=== PATIENT | female | born 1995 | race Caucasian/White ===

== ENCOUNTER 2018-05-03 02:56 | Emergency (ER) | payer BC ==
--- NOTE | 2018-05-03 03:15 | EDPHY ---
H & P Stated Complaint: CP since AM, worse tonight Time Seen by Provider: 05/03/18 03:15 HPI/ROS: HPI CHIEF COMPLAINT: Left-sided musculoskeletal chest pain. HISTORY OF PRESENT ILLNESS: 22-year-old female, presents emergency room with 1 day of left-sided chest discomfort. She states it hurts when she takes deep breath in, it hurts when she coughs. If she is not laughing, not coughing, not take a deep breath she denies pain. She denies shortness of breath, denies hemoptysis. Does not smoke. Mainly complains of left anterior chest wall pain and left posterior scapula pain worse when she takes deep breath in. No history of DVT or PE. Saw her OBGYN yesterday and just started on control yesterday. Past Medical History: Denies medical history Past Surgical History: Denies surgical history Social History: Denies drugs alcohol tobacco. Family History: Noncontributory ROS REVIEW OF SYSTEMS: 10 Systems were reviewed and negative with the exception of the elements mentioned in the history of present illness. Exam Constitutional appears well nontoxic no acute distress, vital signs stable triage nursing summary reviewed, vital signs reviewed, awake/alert. Eyes normal conjunctivae and sclera, EOMI, PERRLA. HENT normal inspection, atraumatic, moist mucus membranes, no epistaxis, neck supple/ no meningismus, no raccoon eyes. Respiratory clear to auscultation bilaterally, normal breath sounds, no respiratory distress, no wheezing. Cardiovascular chest wall: Mild tender palpation over the left anterior chest wall and left scapula reproducible on exam, rate normal, regular rhythm, no murmur, no edema, distal pulses normal. Gastrointestinal soft, non-tender, no rebound, no guarding, normal bowel sounds, no distension, no pulsatile mass. Genitourinary no CVA tenderness. Musculoskeletal no midline vertebral tenderness, full range of motion, no calf swelling, no tenderness of extremities, no meningismus, good pulses, neurovascularly intact. Skin pink, warm, & dry, no rash, skin atraumatic. Neurologic awake, alert and oriented x 3, AAOx3, moves all 4 extremities equally, motor intact, sensory intact, CN II-XII intact, normal cerebellar, normal vision, normal speech. Psychiatric normal mood/affect. Heme/Lymph/Immune no lymphadenopathy. Differential diagnosis includes but is not limited to: ACS, atypical chest pain , pneumothorax, pneumonia, pulmonary embolism, aortic dissection, congestive heart failure, tumor, musculoskeletal pain, esophageal pain, GERD, peptic ulcer disease, pancreatitis Medical Decision Making: Plan for this patient I believe this to be anterior chest wall musculoskeletal pain, IV Toradol for pain control IV fluids, EKG, troponin, D-dimer rule out PE rule out pneumothorax. Re-evaluation: EKG interpretation by me on record in [facility] system. Impression time of EKG 3:15 a.m., sinus tach 101 without any signs of acute ischemia. No ST elevation no ST depression no T-wave abnormalities. No signs of cardiac arrhythmia, no signs of WPW or Brugada. Patient has a positive D-dimer. She is on control. Given her pleuritic pain when she breathes in will proceed with CT angiogram of the chest given control, positive D-dimer, and pleuritic pain. Patient had a CT angiogram of her chest due to the elevated D-dimer and pleuritic pain. The CT angiogram of the chest is negative for acute PE called to me by Dr. Victor The patient's EKG is nonischemic. The patient's troponin is noted to be negative. The patient's left-sided pleuritic pain, and tender palpation on the anterior left chest is consistent with musculoskeletal chest pain. She is re-evaluated at 7:14 a.m: She is sleeping. She denies any chest pain or shortness of breath. The patient ambulated well throughout the emergency without difficulty. Is noted her CT angiogram showed no evidence of PE in the setting but positive D -dimer The patient's EKG shows no signs of cardiac arrhythmia or ischemia. The patient would like to go home. Troponin negative Return precautions discussed with the patient understands return if worsening chest pain, shortness of breath or not doing well. Source: Patient - Personal History LMP (Females 10-55): Now Current Tetanus/Diphtheria Vaccine: Unsure - Medical/Surgical History Hx Asthma: No Hx Chronic Respiratory Disease: No Hx Diabetes: No Hx Cardiac Disease: No Hx Renal Disease: No Hx Cirrhosis: No Hx Alcoholism: No Hx HIV/AIDS: No Hx Splenectomy or Spleen Trauma: No Other PMH: denies - Social History Smoking Status: Former smoker Constitutional: Initial Vital Signs Temperature (C) 36.4 C 05/03/18 02:57 Heart Rate 102 H 05/03/18 02:57 Respiratory Rate 18 05/03/18 02:57 Blood Pressure 128/75 H 05/03/18 02:57 O2 Sat (%) 99 05/03/18 02:57 O2 Delivery Mode Room Air Allergies/Adverse Reactions: No Known Allergies Allergy (Unverified 05/03/18 02:59) Home Medications: Medication Instructions Recorded Bcp 05/03/18 Medical Decision Making - Diagnostics Imaging Results: Imaging Impressions Chest X-Ray 05/03/18 03:19 Impression: Normal portable exam. - Data Points Laboratory Results: Laboratory Results 05/03/18 03:25 05/03/18 03:25 05/03/18 05/03/18 05/03/18 03:25 03:25 03:25 WBC 12.98 10^3/uL H 10^3/uL (3.80-9.50) RBC 4.02 10^6/uL L 10^6/uL (4.18-5.33) Hgb 12.7 g/dL g/dL (12.6-16.3) Hct 36.0 % L % (38.0-47.0) MCV 89.6 fL fL (81.5-99.8) MCH 31.6 pg pg (27.9-34.1) MCHC 35.3 g/dL g/dL (32.4-36.7) RDW 12.0 % % (11.5-15.2) Plt Count 257 10^3/uL 10^3/uL (150-400) MPV 9.2 fL fL (8.7-11.7) Neut % (Auto) 71.9 % % (39.3-74.2) Lymph % (Auto) 18.3 % % (15.0-45.0) [place] % (Auto) 8.2 % % (4.5-13.0) Eos % (Auto) 1.0 % % (0.6-7.6) Baso % (Auto) 0.3 % % (0.3-1.7) Nucleat RBC Rel Count 0.0 % % (0.0-0.2) Absolute Neuts (auto) 9.33 10^3/uL H 10^3/uL (1.70-6.50) Absolute Lymphs (auto) 2.38 10^3/uL 10^3/uL (1.00-3.00) Absolute Monos (auto) 1.06 10^3/uL H 10^3/uL (0.30-0.80) Absolute Eos (auto) 0.13 10^3/uL 10^3/uL (0.03-0.40) Absolute Basos (auto) 0.04 10^3/uL 10^3/uL (0.02-0.10) Absolute Nucleated RBC 0.00 10^3/uL 10^3/uL (0-0.01) Immature Gran % 0.3 % % (0.0-1.1) Immature Gran # 0.04 10^3/uL 10^3/uL (0.00-0.10) D-Dimer 0.51 ug/mLFEU H ug/mLFEU (0.00-0.50) Sodium 140 mEq/L mEq/L (135-145) Potassium 3.7 mEq/L mEq/L (3.5-5.2) Chloride 105 mEq/L mEq/L (97-110) Carbon Dioxide 25 mEq/l mEq/l (22-31) Anion Gap 10 mEq/L mEq/L (6-14) BUN 12 mg/dL mg/dL (7-23) Creatinine 0.7 mg/dL mg/dL (0.6-1.0) Estimated GFR > 60 Glucose 97 mg/dL mg/dL (70-100) Calcium 9.4 mg/dL mg/dL (8.5-10.4) Magnesium 1.9 mg/dL mg/dL (1.6-2.3) Total Bilirubin 0.4 mg/dL mg/dL (0.1-1.4) Conjugated Bilirubin 0.1 mg/dL mg/dL (0.0-0.5) Unconjugated Bilirubin 0.3 mg/dL mg/dL (0.0-1.1) AST 21 IU/L IU/L (14-46) ALT 12 IU/L IU/L (9-52) Alkaline Phosphatase 63 IU/L IU/L (38-126) NT-Pro-B Natriuret Pep 19 pg/mL pg/mL (0-125) Total Protein 6.9 g/dL g/dL (6.3-8.2) Albumin 4.3 g/dL g/dL (3.5-5.0) Lipase 89 IU/L IU/L (23-300) Medications Given: Discontinued Medications Sodium Chloride (Ns) 1,000 mls @ 0 mls/hr IV EDNOW ONE; Wide Open PRN Reason: Protocol Stop: 05/03/18 03:20 Last Admin: 05/03/18 03:31 Dose: 1,000 mls Sodium Chloride (Ns) 1,000 mls @ 0 mls/hr IV ONCE ONE PRN Reason: Wide Open Stop: 05/03/18 03:20 Last Admin: 05/03/18 03:31 Dose: 1,000 mls Ketorolac Tromethamine (Toradol) 15 mg IVP EDNOW ONE Stop: 05/03/18 03:20 Last Admin: 05/03/18 03:32 Dose: 15 mg Departure - Departure Disposition: Home, Routine, Self-Care Clinical Impression: Costochondritis Condition: Good Instructions: Chest Pain (ED), Costochondritis (ED), Thoracic Pain (ED) Additional Instructions: 1. Alternate Tylenol and Motrin every 6 hr for pain control 2. Return to the emergency room if worsening symptoms Referrals: JORGE HORVATH [Other] - As per Instructions
[2018-05-03] MEDS ORDERED: KETOROLAC 15 MG/1 ML SDV IVP ONE (03:19)
[2018-05-03] MEDS ORDERED: NS 1,000 ML IV ONE ×2 (03:19)
[2018-05-03 03:34] LABS: PLATELET COUNT 257 10^3/uL (150-400)
[2018-05-03] MEDS ORDERED: IOPAMIDOL (ISOVUE 370) 100 ML BTL IV ONE (04:39)
[2018-05-03 07:29] VITALS: BP 121/80
--- NOTE | 2018-05-03 08:56 | CPEKG ---
Test Reason : OPEN Blood Pressure : / mmHG Vent. Rate : 101 BPM Atrial Rate : 102 BPM P-R Int : 196 ms QRS Dur : 077 ms QT Int : 350 ms P-R-T Axes : 059 075 044 degrees QTc Int : 454 ms Sinus tachycardia Confirmed by Harshil Lyn ([id number]) on 05/03/2018 8:55:58 AM Referred By: Confirmed By:Harshil Lyn
== END 2018-05-03 07:59 | disposition home or self-care (01) ==
DX: M94.0 Chondrocostal junction syndrome [Tietze] (principal); E86.9 Volume depletion, unspecified; Z87.891 Personal history of nicotine dependence
CPT/HCPCS: 84484-PO; 96374; J1885; Q9967

== ENCOUNTER 2018-10-21 15:39 | Emergency (ER) | payer BC | END 2018-10-21 19:26 | disposition home or self-care (01) ==